=== PATIENT | male | born 1965 | race Caucasian/White ===

== ENCOUNTER 2016-06-26 14:09 | Emergency (ER) | payer MEDICARE ==
[~2016-06-26] VITALS: Ht 177.8 cm; Wt 75.1 kg
[~2016-06-26 14:09] MED LIST: CEPH-583 PO; CYCL-375 PO
[2016-06-26 14:10] VITALS: Ht 177.8 cm; Wt 75.1 kg
--- OUTSIDE RECORDS SUMMARY | 2016-06-26 14:15 | XMS REPORT | Continuity of Care Document ---
Author Author [facility] Organization [facility] Address Unknown Phone Unavailable Support Name Relationship Address Phone NINA FAUSTIN APRN Caregiver [address] [place] [address] Unavailable [place], [place] Next Of Kin [address] [address] Insurance Providers Guarantor Gaston Fabian Address [address] [place] [address] Email DENIED TO [place] Payer Medicare Policy Number [id number] Subscriber's Name PankajGaston Sanabria Relationship 18 Self Chief Complaint and Reason for Visit Chief Complaint Upper Extremity Problem Reason for Visit Muscle spasm Problems Past Problems Medical Problem Onset Date Laceration Unknown Muscle spasm Unknown Medications Current Home Medications Medication Dose Units Route Directions Days Qty Instructions Start Date Cephalexin (Keflex) 500 Mg Capsule 1 Cap Oral Four Times Daily 5 Days 20 Capsule 10/07/15 Cyclobenzaprine Hcl 10 Mg Tablet 10 Mg Oral Three Times A Day as needed for Spasms 30 Tablet 11/28/15 Social History Social History Problem Response Recorded Date/Time Onset Date Status Hx Alcohol Use Yes 10/07/2015 6:52pm Not Applicable Not Applicable Tobacco Usage smoke 10/09/2015 12:33pm Not Applicable Not Applicable Hospital Discharge Instructions No hospital discharge instructions. Plan of Care Discharge Date 11/28/15 11:50am Disposition 01 DISCHARGED HOME, SELF-CARE Condition at Discharge Stable Instructions/Education Provided DI for Shoulder Pain Prescriptions See Medication Section Additional Instructions/Education Keep appointment with Dr. Dos Santos as previously prescribed. Ice twice daily for 20 minutes at a time. Continue to use Tylenol and Ibuprofen for pain. Contact Dr. Bo or Dr. Dos Santos for increased pain or worsening of symptoms as discussed. Functional Status No functional status results. Allergies, Adverse Reactions, Alerts No known allergies. Immunizations Query Response on File Recorded Date/Time Tetanus Diptheria Vaccine History 201110/07/15 6:52pm Tdap Vaccine Hx 201110/07/15 6:52pm Vital Signs Acute Vital Signs Vital Response Date/Time Temperature (Fahrenheit) 98.7 deg F (96.8 - 99.1) 11/28/2015 11:17am Temperature (Calculated Celsius) 37.45777 degrees C (36.0 - 37.3) 11/28/2015 11:17am Pulse Rate (adult) 93 bpm (60 - 100) 11/28/2015 11:17am Respiratory Rate 16 breaths/min (10 - 20) 11/28/2015 11:17am O2 Sat by Pulse Oximetry 98 % (90 - 100) 11/28/2015 11:17am Blood Pressure 134/81 mm Hg 11/28/2015 11:17am Height (Feet) 5 feet 10/07/2015 6:52pm Height (Inches) 67.20 inches 11/28/2015 11:17am Weight (Kilograms) 87.100 kg 11/28/2015 11:17am Body Mass Index (BMI) 29.0 11/28/2015 11:17am Results No known relevant diagnostic tests, laboratory data and/or discharge summary. Procedures Procedure Status Date Provider(s) RPR S/N/AX/GEN/TRNK 2.5CM/< Completed 10/07/15 JACKSON MORRISON MD EMERGENCY DEPT VISIT Completed 10/07/15 [id number] ITEM OR SERVICE Completed 10/07/15 [id number] ITEM OR SERVICE Completed 10/07/15 Encounters Encounter Location Arrival/Admit Date Discharge/Depart Date Attending Provider Departed Emergency Room [facility] 11/28/15 11:08am 11/28/15 11: 50am NINA FAUSTIN APRN Departed Emergency Room [facility] 10/07/15 6:34pm 10/07/15 7: 51pm JACKSON MORRISON MD Recent Diagnosis
--- OUTSIDE RECORDS SUMMARY | 2016-06-26 14:15 | XMS REPORT | Continuity of Care Document ---
Author Author [facility] Organization [facility] Address Unknown Phone Unavailable Support Name Relationship Address Phone JACKSON MORRISON MD Caregiver [address] [place] [address] [place] [phone] Unavailable Insurance Providers Guarantor Lexie Fabian Address [address] [place] [address] Email DENIED TO [place] Payer Medicare Policy Number [id number] Subscriber's Name Lexie Fabian Relationship 18 Self Chief Complaint and Reason for Visit Chief Complaint Laceration Reason for Visit Laceration Problems Past Problems Medical Problem Onset Date Laceration Unknown Medications Current Home Medications Medication Dose Units Route Directions Days Qty Instructions Start Date Cephalexin (Keflex) 500 Mg Capsule 1 Cap Oral Four Times Daily 5 Days 20 Capsule 10/07/15 Social History Social History Problem Response Recorded Date/Time Onset Date Status Hx Alcohol Use Yes 10/07/2015 6:52pm Not Applicable Not Applicable Query Response Start Date Stop Date Smoking Status Current every day smoker Hospital Discharge Instructions No hospital discharge instructions. Plan of Care Discharge Date 10/07/15 7:51pm Disposition 01 DISCHARGED HOME, SELF-CARE Condition at Discharge Improved Instructions/Education Provided How to Care for a Laceration After Repair Prescriptions See Medication Section Referrals Follow up with your doctor in 7-10 days Note: Additional Instructions/Education TAKE 500 MG OF KEFLEX FOUR TIMES A DAY FOR THE NEXT 5 DAYS. KEEP WOUND DRY POSSIBLE FOR 2 DAYS. MAY LEAVE OPEN TO AIR IN 2 DAYS IF ABLE TO KEEP WOUND CLEAN. OTHERWISE, COVER WITH DRESSING. SUTURES WILL NEED TO BE REMOVED IN 7-10 DAYS Functional Status No functional status results. Allergies, Adverse Reactions, Alerts No known allergies. Immunizations Query Response on File Recorded Date/Time Tetanus Diptheria Vaccine History 201110/07/15 6:52pm Tdap Vaccine Hx 201110/07/15 6:52pm Vital Signs Acute Vital Signs Vital Response Date/Time Temperature (Fahrenheit) 98.3 deg F (96.8 - 99.1) 10/07/2015 7:49pm Temperature (Calculated Celsius) 36.35917 degrees C (36.0 - 37.3) 10/07/2015 7:49pm Pulse Rate (adult) 99 bpm (60 - 100) 10/07/2015 7:49pm Respiratory Rate 18 breaths/min (10 - 20) 10/07/2015 7:49pm O2 Sat by Pulse Oximetry 97 % (90 - 100) 10/07/2015 7:49pm Blood Pressure 119/72 mm Hg 10/07/2015 7:49pm Blood Pressure 119/72 mm Hg 10/07/2015 7:49pm Height (Feet) 5 feet 10/07/2015 6:52pm Height (Inches) 9.50 inches 10/07/2015 6:52pm Weight (Kilograms) 79.100 kg 10/07/2015 6:52pm Body Mass Index (BMI) 25.0 10/07/2015 6:52pm Results No known relevant diagnostic tests, laboratory data and/or discharge summary. Procedures No known history of procedures. Encounters Encounter Location Arrival/Admit Date Discharge/Depart Date Attending Provider Departed Emergency Room [facility] 10/07/15 6:34pm 10/07/15 7: 51pm JACKSON MORRISON MD Recent Diagnosis
[2016-06-26] MEDS ORDERED: NO ROUTINE MEDS (14:35)
[2016-06-26] MEDS ORDERED: NAPR220T61 PO (14:35)
[2016-06-26] MEDS ORDERED: MORPHINE SULFATE 4 MG SYRINGE IV ONE (14:45)
[2016-06-26] MEDS ORDERED: NORMAL SALINE 1,000 ML IV ONE (14:45)
[2016-06-26] MEDS ORDERED: ONDANSETRON 4mg/2ml INJECTION IV ONE (14:45)
[2016-06-26 14:51] LABS: BASOPHILS # (AUTO) 0.1 T/MM3 (0-0.2); BASOPHILS % (AUTO) 0.9 % (0-2); EOSINOPHILS # (AUTO) 0.3 T/MM3 (0-0.5); EOSINOPHILS % (AUTO) 3.6 % (0-4); HCT - HEMATOCRIT 44.8 % (41-53); HGB - HEMOGLOBIN 15.1 GM/DL (13.5-17.5); IMMATURE GRANULOCYTE # (AUTO) 0.01 T/MM3 (0.00-0.03); IMMATURE GRANULOCYTE % (AUTO) 0.1 % (0.0-0.5); LYMPHOCYTES # (AUTO) 1.4 T/MM3 (1-4.8); LYMPHOCYTES % (AUTO) 15.4 % (23-45); MEAN CORPUSCULAR HGB 30.3 UUG (26-34); MEAN CORPUSCULAR HGB CONC(MCHC 33.7 GM/DL (31-37); MEAN CORPUSCULAR VOLUME 89.8 UM3 (80-100); MEAN PLATELET VOLUME 10.1 UM3 (9.4-12.4); MONOCYTES # (AUTO) 0.8 T/MM3 (0-0.8); MONOCYTES % (AUTO) 8.6 % (0-9.0); NEUTROPHILS #(AUTO)-ABSOLUTE 6.5 T/MM3 (1.8-7.7); NEUTROPHILS % (AUTO) 71.4 % (33-66); RED BLOOD COUNT 4.99 M/MM3 (4.50-5.90); WBC - WHITE BLOOD COUNT 9.2 T/MM3 (4.5-11.0)
[2016-06-26 14:57] LABS: BLOOD, URINE NEGATIVE (NEGATIVE); COLOR,URINE YELLOW (YELLOW); LEUKOCYTE ESTERASE ,URINE NEGATIVE (NEGATIVE); NITRITE,URINE NEGATIVE (NEGATIVE)
[2016-06-26 15:00] LABS: ALBUMIN 4.4 G/DL (3.5-5.0); ALBUMIN/GLOBULIN RATIO 1.2 RATIO (1.1-2.2); ALKALINE PHOSPHATASE 107 U/L (38-126); ALT (SGPT) 18 U/L (21-72); ANION GAP 15 MEQ/L (5-15); AST (SGOT) 24 U/L (17-59); BUN/CREATININE RATIO 21 RATIO (6-26); CALCIUM 9.2 MG/DL (8.4-10.2); CHLORIDE 106 MEQ/L (98-107); CO2 - CARBON DIOXIDE 24 MEQ/L (22-30); CREATININE 0.7 MG/DL (0.8-1.5); GLOMERULAR FILTRATION RATE 118; GLUCOSE 192 MG/DL (75-110); LIPASE 84 U/L (23-300); POTASSIUM 3.8 MEQ/L (3.6-5); SODIUM 145 MEQ/L (134-144)
--- NOTE | 2016-06-26 15:34 | NUR ---
BACK FROM CT
--- NOTE | 2016-06-26 16:00 | DI ---
Indication: ITS.REASON: R flank pain PROCEDURE: CT ABD/PELVIS W/O CONTRAST: Encounter: Initial Comparison: None Technique: Axial CT images were performed through the abdomen and pelvis without intravenous contrast. Coronal and sagittal two-dimensional reformats. Automated Exposure Control and Iterative Reconstruction dose reducing techniques were utilized. Findings: Small 4 mm lingular nodule on axial image #15 which is noncalcified. Lung bases are otherwise clear. The unenhanced contours of the liver are unremarkable. The gallbladder is surgically absent. Postoperative changes in the stomach. The spleen, pancreas and adrenal glands are within normal limits. There is a prominent cyst arising from the superior pole of the right kidney. Possible 1 mm stone in the lower pole of the right kidney. Left kidney shows a tiny 1 mm upper pole stone and an additional 1 to 2 mm lower pole stone. No hydronephrosis. No definite ureteral stones. There is metallic artifact from a left hip replacement obscuring portions of the pelvis. Ureters are difficult to follow in their entirety. Surgical anastomosis between bowel loops noted in the pelvis. There is an abnormal appearance of the mesentery with a swirling region seen in the mesenteric vasculature on axial images 43 through 55. There is associated mesenteric edema and haziness present within the fat of this region. There is no evidence of an acute bowel obstruction however. There is an additional region of swirling vessels seen in the anterior omental region on images 44 through 53 no abdominal or pelvic lymphadenopathy. Colon is grossly normal in appearance. Prior appendectomy. Bone windows show degenerative changes in the spine. Probable bone island in the left iliac bone. Impression: 1. Swirling appearance to the mesenteric vasculature in two separate locations which could be due to mesenteric volvulus or internal hernias. There is no evidence of acute bowel obstruction currently although there is significant mesenteric vascular congestion and edema suggesting possible developing vascular compromise. No pneumatosis or portal venous gas seen. Surgical evaluation is recommended. Recommend correlation with patient's surgical history given the stomach and small bowel anastomoses present. 2. Bilateral nephrolithiasis without evidence of obstructing renal or ureteral stone. .
--- NOTE | 2016-06-26 16:23 | NUR ---
PROVIDER DR DANIELS IN TO SEE PATIENT.
--- NOTE | 2016-06-26 16:27 | ERPDOC ---
Departure Disposition Decision Date: Jun 26, 2016 Disposition Decision Time: 16:15 Disposition: 02 TO [facility] Impression Impression Impression: Primary Impression: Abdominal pain Abdominal location: generalized Qualified Codes: R10.84 - Generalized abdominal pain Severity: Moderate Condition: Improved Seen By: Physician only Patient Instructions: Abdominal Pain (ED) Problems/Meds/Labs Reviewed?: Yes Medications reviewed and manag: Yes Follow up care ordered?: Yes Mental Status: Alert, Oriented HPI - Abdominal Pain General Chief Complaint: Abdominal Pain Stated Complaint: BACK/ABD PAIN Time Seen by Provider: 14:29 Source: patient History/Exam Limitations: no limitations HPI - Abdominal Pain Initial Comments 51-year-old male presents to emergency department with a chief complaint of abdominal pain. Patient noted onset of abdominal pain 3 days ago. Patient was at home when the symptoms began. Symptoms have persisted in nature since onset. Symptoms have had a gradual progression in nature. He describes his pain as moderate. Pain is generalized. There is no radiation of pain. Pain is sharp. He notes that the pain improves with analgesia and rest and increases with movement. Patient denies any other complaints or associated symptoms. He is status post gastric bypass in 2008 in [facility]. Patient does believe that he felt a popping sensation in his abdomen prior to onset of symptoms. Patient denies any trauma, travel, poorly prepared food, or recent antibiotic use. Occurred At: home Onset: Gradual Allergies: Coded Allergies: No Known Allergies (Unverified , 06/26/16) Past History Patient Surgical History S/P Gastric Bypass Surgery Past Medical History Psychological: alcohol abuse Surgical History General: other Joint: knee, shoulder Family History Family History: Negative Social History Smoking Status: Current every day smoker # of Years: 25 Substance Use Type: does not use Alcohol Intake: occasionally Last Drink: hours (ago) Sexuality: female partner Review of Systems Constitutional Constitutional: DENIES: chills, fever Eyes General: DENIES: erythema, exudate Lids/Accessories: DENIES: erythema, swelling Vision: DENIES: acuity, blurring ENMT Ears: DENIES: drainage, erythema, pain Hearing: DENIES: hearing loss Balance: DENIES: ataxia, falling to one side Sinuses: DENIES: congestion, pain Nose: DENIES: nosebleeds, pain Mouth/Throat: DENIES: painful swallowing, sore throat Teeth: DENIES: pain Jaw: DENIES: pain Cardiovascular Cardiac: DENIES: chest pain, dyspnea on exertion Rhythm/Rate: DENIES: irregular beat, palpitations Vascular: DENIES: pedal edema, unilateral swelling Pulmonary Respiratory: DENIES: cough, dyspnea, pleuritic chest pain, sputum GI Upper Abdomen: pain, DENIES: nausea, vomiting Lower Abdomen: pain, DENIES: diarrhea General: DENIES: dysuria, pain Musculoskeletal General: DENIES: joint pain, pain, tenderness Integumentary Skin: DENIES: itching, rash Neurological General: DENIES: headache, numbness, weakness Psychiatric Psychiatric: DENIES: emotional instability, suicidal ideation/attempt Endocrine Endocrine: DENIES: polydipsia, polyphagia Hematologic/Lymphatic Hematologic/Lymphatic: DENIES: frequent nosebleeds, lymphadenopathy Allergic/Immunological Allergic/Immunoligical: DENIES: frequent infections, hives Physical Exam General General Nourishment: well nourished, well developed, appears stated age, no acute distress, adult General Body Habitus: well groomed Vitals and Pain First Documented Vital Signs Date Time Temp Pulse Resp B/P Pulse Ox O2 Delivery O2 Flow Rate FiO2 06/26/16 14:10 98.5 88 20 115/91 95 Room Air Weight: Kilograms: 75.100 Height (feet): 5 Height (inches): 10.00 Triage Pain Scale: RN VS reviewed by Provider: Yes Normal Exams: Head: Normocephalic w/o trauma Eyes: Pupils are PERRLA w/ EOMI, No scleral icterus, irritation, or foreign bodies noted ENMT: No facial trauma, nasal exudates, pharyngeal erythema, or exudates are noted Dental: No fractured, loose, or missing teeth noted Neck: Full range of motion, without adenopathy, JVD, bruits or thyromegaly Chest/Resp: Clear all wing, with good airflow, and symmetry bilaterally CV: Regular rate and rhythm, without murmur or gallop, Pulses 2+ all extremities, capillary refill, <2 seconds all ext., no pedal edema noted Abdomen: Bowel sounds positive, non-distended, no hepatosplenomegaly, masses or bruits noted Lymphatic: No lymphadenopathy, or lymphedema noted Musculoskeletal: No tenderness, or deformity noted, good range of motion, all extremities Integumentary: No rashes, hives, or bruising noted, hair and nails, without abnormality Neurologic: Patient is alert, and oriented, cranial nerves, motor/sensory/ cerebellar, exams w/o gross deficits, to observation Psychiatric: Patient exhibits, appropriate attention, emotion and affect Abdomen (brief) Comments Abdomen - soft. generalized tenderness to palpation. No rebound or guarding. No peritoneal signs. NO CVAT. BSA x 4. Differential Diagnoses Considering: Bowel Obstruction, Constipation, Diverticulitis, Hernia, IBS, Ileus Progress Results/Orders Orders Procedure Category Date Status Time Cbc W/Auto LAB 06/26/16 Complete Diff-Reflex Manual Cmp - Comprehensive LAB 06/26/16 Complete Metabolic Lipase LAB 06/26/16 Complete Ua, Dip Wreflex LAB 06/26/16 Complete Microsc & Shuttle Buggy Operator 14:30 EKG EKG 06/26/16 Taken Normal Saline (Normal PHA 06/26/16 Complete Saline Iv) 14:45 Ondansetron Inj PHA 06/26/16 Complete (Zofran) 14:45 Morphine Sulfate PHA 06/26/16 Complete (Morphine) 14:45 Ct Abd/Pelvis W/O CT 06/26/16 Resulted Contrast 15:09 Hydromorphone PHA 06/26/16 Complete (Dilaudid) 16:30 Lab Results Laboratory Tests Test 06/26/16 14:45 06/26/16 14:52 White Blood Count 9.2T/MM3 Red Blood Count 4.99M/MM3 Hemoglobin 15.1GM/DL Hematocrit 44.8% Mean Corpuscular Volume 89.8UM3 Mean Corpuscular Hemoglobin 30.3UUG Mean Corpuscular Hemoglobin Concent 33.7GM/DL RDW Standard Deviation 47.6FL Platelet Count 328T/MM3 Mean Platelet Volume 10.1UM3 Immature Granulocyte % (Auto) 0.1% Neutrophils (%) (Auto) 71.4% Lymphocytes (%) (Auto) 15.4% Monocytes (%) (Auto) 8.6% Eosinophils (%) (Auto) 3.6% Basophils (%) (Auto) 0.9% Absolute Immature Granulocyte (auto 0.01T/MM3 Absolute Neutrophils (auto) 6.5T/MM3 Absolute Lymphocytes (auto) 1.4T/MM3 Absolute Monocytes (auto) 0.8T/MM3 Absolute Eosinophils (auto) 0.3T/MM3 Absolute Basophils (auto) 0.1T/MM3 Turbidity < 20 Sodium Level 145MEQ/L Potassium Level 3.8MEQ/L Chloride Level 106MEQ/L Carbon Dioxide Level 24MEQ/L Anion Gap 15MEQ/L Blood Urea Nitrogen 15.0MG/DL Creatinine 0.7MG/DL Glomerular Filtration Rate Calc 118 BUN/Creatinine Ratio 21RATIO Glucose Level 192MG/DL Calculated Osmolality 285MOSM/KG Calcium Level 9.2MG/DL Total Bilirubin 0.60MG/DL Icterus Index < 2 Aspartate Amino Transf (AST/SGOT) 24U/L Alanine Aminotransferase (ALT/SGPT) 18U/L Alkaline Phosphatase 107U/L Total Protein 8.0G/DL Albumin 4.4G/DL Globulin 3.6G/DL Albumin/Globulin Ratio 1.2RATIO Lipase 84U/L Chemistry Specimen Hemolysis < 15 Urine Collection Type Cleancatch-midstream Urine Color Yellow Urine Turbidity Clear Urine pH 5.5 Urine Specific [place] >=1.030 Urine Protein Trace Urine Glucose (UA) Negative Urine Ketones Trace Urine Blood Negative Urine Nitrite Negative Urine Bilirubin 1+ Urine Urobilinogen 1.0EU/DL Urine Leukocyte Esterase Negative Urinalysis Comment Microscopic not ind. Medications Current ED Medications Sodium Chloride (Normal Saline IV) 1,000 ml @ 999 mls/hr Q1H1M ONCE IV Last administered on 06/26/16 15:03; Start 06/26/16 at 14:45; Stop 06/26/16 at 15:45 ; Status DC Ondansetron HCl (Zofran) 4 mg O ONCE IV Last administered on 06/26/16 15:03; Start 06/26/16 at 14:45; Stop 06/26/16 at 14:46; Status DC Morphine Sulfate (Morphine) 4 mg O ONCE IV Last administered on 06/26/16 15: 03; Start 06/26/16 at 14:45; Stop 06/26/16 at 14:46; Status DC Hydromorphone HCl (Dilaudid) 0.5 mg O ONCE IV Last administered on 06/26/16 16:30; Start 06/26/16 at 16:30; Stop 06/26/16 at 16:31; Status DC Progress Progress Labs/imaging were discussed in detail with the patient and questions are answered. Patient is given IV hydration. Patient is given parental narcotic and antiemetic medications intravenously which improved his symptoms. CT scan of the abdomen and pelvis is reviewed in detail with Dr. Reece who recommends transfer to [place] to a bariatric surgeon. Dr. Reece recommends Dr. Lee King. CT scan of the abdomen/pelvis is reviewed in detail with Dr. Lee King who recommends transfer to [facility] for further evaluation and treatment. Dr. King will complete evaluation of the patient and order CTA of the abdomen pelvis and lactic acid as needed. Patient is in agreement with the current plan of management. Patient is transferred to [facility] in improved condition. Patient is in agreement with the current plan of management. Risk versus benefit of transfer is discussed in detail with the patient who verbalizes agreement and understanding. Patient must be transferred to [facility] as bariatric surgery is not available at [facility]. EKG EKG : Rate: 60-100 Rhythm: sinus [place]: normal QRS: normal Intervals: normal ST/T: normal Interpreted by: signing physician CT CT : CT: Abd/Pelvis no contrast Interpretation: Abnormal, Reviewed Written Report (abdomen/pelvis: Swirling of the mestery with potential edema could be secondary to volvulus or hernia. Recomend surgical consultation.) FATOUMATA DANIELS DO Jun 26, 2016 16:27
[2016-06-26] MEDS ORDERED: HYDROMORPHONE 2mg/ml INJECTION IV ONE (16:30)
--- NOTE | 2016-06-26 17:00 | NUR ---
REPORT GIVEN TO [facility] RN. NO QUESTIONS.
--- NOTE | 2016-06-26 17:02 | NUR ---
911 PAGED AT THIS TIME.
[2016-06-26 17:12] VITALS: BP 115/77; PULSE 71; RESP 16; TEMP 98.5; O2SAT 95
--- NOTE | 2016-06-26 17:12 | NUR ---
TRANSFER REPORT GIVEN TO [facility]. CARE ASSUMED BY [facility].
== END 2016-06-26 17:12 | disposition short-term general hospital (02) ==
LOC: ED 14:09
DX: R10.84 Generalized abdominal pain (principal)
CPT/HCPCS: 74176; 80053; 81003; 83690; 85025; 93005; 96361; 96374; 96375; 99285; J1170; J2405; J7030